=== PATIENT | female | born 1995 | race African-American/Black ===

== ENCOUNTER 2021-06-30 10:08 | Emergency (ER) | payer MEDICARE, MEDICAID, SELFPAY ==
[2021-06-30 10:19] VITALS: BP 115/64; PULSE 75; RESP 24; TEMP 36.9; O2SAT 99
--- NOTE | 2021-06-30 10:21 | ED.SKABFB ---
HPI - Skin/Abscess/Foreign Bdy General Chief complaint: Skin/Abscess/Foreign Body Stated complaint: abscess Time Seen by Provider: 06/30/21 10:21 Source: patient and RN notes reviewed Mode of arrival: ambulatory History of Present Illness HPI narrative: 25-year-old female presents to the [facility] with complaints of an abscess on the buttock. Patient reports the sore has been there for a few days. Notified the custodial caregivers last night when it started draining. Denies fevers. No chest pain or abdominal pain. Has had it opened surgically in the past Related Data Home Medications Medication Instructions Recorded Confirmed Colace 100 mg PO DAILY 06/30/21 06/30/21 ferrous sulfate 325 mg PO DAILY 06/30/21 06/30/21 lisinopril 2.5 mg PO DAILY 06/30/21 06/30/21 lithium carbonate 600 mg PO BID 06/30/21 06/30/21 metformin 500 mg PO DAILY 06/30/21 06/30/21 norethindrone-e.estradiol-iron 1 tablet PO DAILY 06/30/21 06/30/21 omega-3 fatty acids-vitamin E 1 cap PO DAILY 06/30/21 06/30/21 [Fish Oil] oxybutynin chloride 10 mg PO DAILY 06/30/21 06/30/21 paliperidone palmitate [Invega 117 mg IM USEASDIRECTD 06/30/21 06/30/21 Sustenna] prazosin 2 mg PO HS 06/30/21 06/30/21 sertraline 100 mg PO QAM 06/30/21 06/30/21 trazodone 50 mg PO DAILY 06/30/21 06/30/21 Allergies Allergy/AdvReac Type Severity Reaction Status Date / Time Penicillins Allergy Unknown RASH Verified 06/30/21 10:20 Olives Allergy Unknown Hives Uncoded 06/30/21 10:20 Review of Systems Review of Systems: All systems reviewed & are unremarkable except as noted in HPI and below Constitutional: Constitutional: Reports no additional constitutional complaints, Denies chills and Denies fever(s) Eyes: Eyes: Reports no additional eye complaints Cardiovascular: Cardiovascular: Reports no additional cardiovascular complaints Respiratory: Respiratory: Reports no additional respiratory complaints Musculoskeletal: Musculoskeletal: Reports no additional musculoskeletal complaints Integumentary/Breasts: Skin/Breast: Reports as per HPI, Reports erythema and Denies rash Psychiatric: Psychiatric: Reports no additional psychiatric complaints Allergic/Immunologic: Allergic/Immunologic: Reports no additional allergic/immunologic complaints [facility]LY [facility] Past Medical History Medical History (Updated 06/30/21 @ 11:10 by Mary Meraz) Abscess, gluteal cleft Anxiety Bipolar affect, depressed Depression Diabetes Hypertension Comments At the time of my signature, I reviewed and agree with the nursing past medical, surgical, social, and family history. There is no relevant family history pertinent to the patient complaint. Exam Const: General: alert Nutritional Appearance: well nourished Orientation/consciousness: patient oriented x3 HENMT: Head: normal to inspection Neck: Neck: normal visual inspection, no lymphadenopathy and no meningeal signs Chest: Chest palpation & inspection: normal inspection of the chest Resp: Effort & Inspection: normal respiratory effort Auscultation: clear to auscultation bilaterally Cardio: Rate: regular rate Rhythm: regular rhythm GI: GI Palp: No Tenderness to palpation present (GI) : General: Yes no CVA tenderness Back/Spine/Pelvis: Back: no CVA tenderness Skin: Wounds: wounds noted (Proximal gluteal cleft, abscess draining without redness, increased warmth,) Other: Proximal gluteal cleft, abscess draining without redness, increased warmth, no fluctuance, yellowy/thick white drainage noted, old scar tissue in the same area Full body images: 1. draining area, pus, No redness, no increased warmth. Neuro: General: patient oriented x3, moves all extremities, no meningeal signs and no focal motor deficits Speech: normal speech Gait exam (Neuro): Normal gait present Extrem: General: normal to inspection and no pedal edema Psych: Appearance: grossly normal and well kempt Mental Status: mental status grossly n
== END 2021-06-30 10:55 | disposition home or self-care (01) ==
PROVIDERS: Emergency Provider Nurse Practitioner; PCP Nurse Practitioner Family
DX: L02.31 Cutaneous abscess of buttock (principal); E11.9 Type 2 diabetes mellitus without complications; I10 Essential (primary) hypertension; F31.9 Bipolar disorder, unspecified; F41.9 Anxiety disorder, unspecified
CPT/HCPCS: 87070; 87075; 87205; 99203; G0463

== ENCOUNTER 2022-07-09 10:21 | Emergency (ER) | payer MEDICARE, MEDICAID, SELFPAY ==
--- NOTE | 2022-07-09 10:30 | ED.SKABFB ---
HPI - Skin/Abscess/Foreign Bdy General Chief complaint: Skin/Abscess/Foreign Body Stated complaint: boil Time Seen by Provider: 07/09/22 10:34 Source: patient and RN notes reviewed Mode of arrival: ambulatory Limitations: no limitations History of Present Illness HPI narrative: 26-year-old female presents with concern for an abscess. She reports painful area between her buttocks with purulent drainage. She reports she has had to have an abscess drained in her armpit before. She denies fever, body aches, chills, sweats. She denies any change in bowel or bladder function. MD complaint: abscess/boil Related Data Home Medications Medication Instructions Recorded Confirmed Colace 100 mg PO DAILY 06/30/21 09/25/21 ferrous sulfate 325 mg (65 mg 325 mg PO DAILY 06/30/21 09/25/21 iron) tablet lisinopril 2.5 mg tablet 2.5 mg PO DAILY 06/30/21 09/25/21 lithium carbonate 300 mg capsule 600 mg PO BID 06/30/21 09/25/21 metformin 500 mg tablet 500 mg PO DAILY 06/30/21 09/25/21 norethindrone 1 mg-ethinyl 1 tablet PO DAILY 06/30/21 09/25/21 estradiol 20 mcg (21)-iron 75 mg (7) tablet omega-3 fatty acids-vitamin E 1 cap PO DAILY 06/30/21 09/25/21 1,000 mg capsule oxybutynin chloride 10 mg 10 mg PO DAILY 06/30/21 09/25/21 tablet,extended release 24 hr paliperidone palmitate 117 mg/0.75 117 mg IM USEASDIRECTD 06/30/21 09/25/21 mL intramuscular syringe (Invega Sustenna) prazosin 2 mg capsule 2 mg PO HS 06/30/21 09/25/21 sertraline 100 mg tablet 100 mg PO QAM 06/30/21 09/25/21 trazodone 50 mg tablet 50 mg PO DAILY 06/30/21 09/25/21 Allergies Allergy/AdvReac Type Severity Reaction Status Date / Time Penicillins Allergy Unknown RASH Verified 11/29/21 16:26 Olives Allergy Unknown Hives Uncoded 11/29/21 16:26 Review of Systems Review of Systems: CONSTITUTIONAL: Denies malaise, chills, sweats, or fever. EYES: Denies redness, or discharge. ENT: Denies rhinorrhea, congestion, swollen lips, swollen tongue CARDIOVASCULAR: Denies chest pain, palpitations, or edema. RESPIRATORY: Denies cough or dyspnea. GASTROINTESTINAL: Denies abdominal pain, nausea, vomiting SKIN: Reports painful area between the buttocks with purulent drainage MUSCULOSKELETAL: Denies joint pain or myalgia. NEUROLOGIC: Denies headache. All systems reviewed & are unremarkable except as noted in HPI and below PMFSH Past Medical History Medical History Abscess, gluteal cleft Anxiety Bipolar affect, depressed Depression Diabetes Hypertension Social History Social History (System 11/29/21 @ 16:26 by Bishop Rizvi) Smoking status: Never smoker Alcohol intake: never Substance use: never Comments At time of signature, agree with nursing past medical, surgical, social and family history. There is no relevant family history pertinent to the presenting complaint Exam Narrative: GENERAL: Well-appearing, well-nourished, and in no acute distress. HEAD: Normocephalic, atraumatic. EYES: PERRLA, conjunctivae clear ENT: Mucous membranes moist. NECK: Supple. No lymphadenopathy CHEST: Clear to auscultation. No respiratory distress. HEART: Regular rate and rhythm. SKIN: Warm, dry. Purulent drainage noted at the top of the mid buttocks in the pilonidal area. No fluctuance noted in or around the area. No pain beyond proportion, no erythema, warmth. NEURO: Alert and oriented x3. PSYCH: Normal mood and affect Course Course Emergency Course: Patient is aware of diagnosis, understands and agrees to treatment plan. Anticipatory guidance given. Patient agrees to follow-up as directed and is aware of reasons to seek care at the emergency department. Portions of this record may have been created with voice recognition software Level of Care: Express Care Visit Vital Signs Vital signs: Reviewed. MDM - Skin/Abscess/Foreign Bdy MDM Narrative Medical decision making narrative: Exam findings show no a
[2022-07-09 10:31] VITALS: BP 124/68; PULSE 87; RESP 20; TEMP 36.7; O2SAT 99
[2022-07-09 10:32] VITALS: BP 124/68; PULSE 87; RESP 20; TEMP 36.7; O2SAT 99
== END 2022-07-09 10:52 | disposition home or self-care (01) ==
PROVIDERS: Emergency Provider Nurse Practitioner; PCP Nurse Practitioner Family
DX: L05.01 Pilonidal cyst with abscess (principal); E11.9 Type 2 diabetes mellitus without complications; I10 Essential (primary) hypertension; F41.9 Anxiety disorder, unspecified; F31.9 Bipolar disorder, unspecified
CPT/HCPCS: 99213; G0463

== ENCOUNTER 2022-09-30 09:56 | Outpatient (CLI) | payer MEDICARE, MEDICAID, SELFPAY ==
--- NOTE | ~2022-09-30 | US_ITS ---
EXAMINATION: US pelvic complete w TV DATE: 09/30/2022 10:50 INDICATION: Irregular periods. Comparison:No prior studies for comparison. TECHNIQUE: Multiple transabdominal and endovaginal sonographic images of the pelvis performed. FINDINGS: The uterus measures 8.2 x 3.7 x 5 cm. The endometrial complex measures 2 mm. The right ovary is not visualized. Left ovary is normal measuring 1.6 x 1.5 x 1.2 cm. There is no ligia e fluid in the pelvis. There are no abnormal masses seen on either side. IMPRESSION: 1. Unremarkable pelvic ultrasound. Reviewed, dictated and finalized at location A. MAINTENA[facility]CE
== END 2022-09-30 09:57 | disposition home or self-care (01) ==
PROVIDERS: PCP Nurse Practitioner Family; Visit Provider Obstetrics & Gynecology
DX: N92.6 Irregular menstruation, unspecified (principal)
CPT/HCPCS: 76830; 76856

== ENCOUNTER 2024-02-15 12:27 | Emergency (ER) | payer OTHER, SELFPAY ==
[2024-02-15 12:38] VITALS: BP 130/73; PULSE 100; RESP 20; TEMP 36.4; O2SAT 99
[2024-02-15 12:43] VITALS: BP 130/73; PULSE 100; RESP 20; TEMP 36.4; O2SAT 99
--- NOTE | 2024-02-15 12:53 | ED.URI ---
HPI - URI/Sore Throat General Chief Complaint: Upper Respiratory Infection Stated Complaint: Congestion Source: patient and RN notes reviewed Mode of arrival: ambulatory Limitations: no limitations History of Present Illness HPI Narrative: 28-year-old female presents with concern for to 3 day history of runny nose, stuffy nose. Reports she has not taken any [id number] medications for her symptoms. She denies fever, body aches, chills, sweats. Denies vomiting, diarrhea. Reports nausea MD elicited complaint: cough and sore throat Related Data Home Medications Medication Instructions Recorded Confirmed ferrous sulfate 325 mg (65 mg 325 mg PO DAILY 06/30/21 02/15/24 iron) tablet lisinopril 2.5 mg tablet 2.5 mg PO DAILY 06/30/21 02/15/24 lithium carbonate 300 mg capsule 600 mg PO BID 06/30/21 02/15/24 metformin 500 mg tablet 500 mg PO DAILY 06/30/21 02/15/24 norethindrone 1 mg-ethinyl 1 tablet PO DAILY 06/30/21 02/15/24 estradiol 20 mcg (21)-iron 75 mg (7) tablet omega-3 fatty acids-vitamin E 1 cap PO DAILY 06/30/21 02/15/24 1,000 mg capsule oxybutynin chloride 10 mg 10 mg PO DAILY 06/30/21 02/15/24 tablet,extended release 24 hr paliperidone palmitate 117 mg/0.75 117 mg IM DIRECTED 06/30/21 02/15/24 mL intramuscular syringe (Invega Sustenna) prazosin 2 mg capsule 2 mg PO HS 06/30/21 02/15/24 sertraline 100 mg tablet 100 mg PO QAM 06/30/21 02/15/24 trazodone 50 mg tablet 50 mg PO DAILY 06/30/21 02/15/24 albuterol sulfate 90 mcg/actuation 2 inh inhalation DIRECTED 02/15/24 02/15/24 aerosol inhaler aripiprazole 5 mg tablet 5 mg PO DAILY 02/15/24 02/15/24 chlorhexidine gluconate 4 % 1 applic topical DIRECTED 02/15/24 02/15/24 topical liquid (Hibiclens) divalproex 500 mg tablet,extended 500 mg PO DAILY 02/15/24 02/15/24 release 24 hr docusate sodium 100 mg capsule 100 mg PO DAILY 02/15/24 02/15/24 Allergies Allergy/AdvReac Type Severity Reaction Status Date / Time Penicillins Allergy Unknown RASH Verified 02/15/24 12:36 Olives Allergy Unknown Hives Uncoded 02/15/24 12:36 Review of Systems Review of Systems: CONSTITUTIONAL: Denies malaise, chills, sweats, or fever. EYES: Denies visual changes, redness, or discharge. ENT: Reports rhinorrhea, congestion. Denies sinus pain, otalgia and sore throat. CARDIOVASCULAR: Denies chest pain, palpitations, or edema. RESPIRATORY: Denies cough. Denies dyspnea. GASTROINTESTINAL: Denies abdominal pain, vomiting, diarrhea. Reports nausea SKIN: Denies rash or itching. MUSCULOSKELETAL: Denies myalgia. NEUROLOGIC: Denies headache. All systems reviewed & are unremarkable except as noted in HPI and below PMFSH Past Medical History Medical History Abscess, gluteal cleft Anxiety Bipolar affect, depressed Depression Diabetes Hypertension Social History Social History (Updated 12/23/22 @ 09:01 by BIRDIE Clemens) Smoking status: Never smoker Alcohol intake: never Substance use: never Lack of Transportation: No Lack of Food: Never True Current Housing: I Have Housing Concerned About Future Housing: No Difficulty Paying Gas/Electric Bills: No Difficulty Paying for Meds: No Currently Unemployed: No Education: Grade School Difficulty w/ Childcare or Family Care: No Comments At time of signature, agree with nursing past medical, surgical, social and family history. There is no relevant family history pertinent to the presenting complaint Exam Narrative: GENERAL: Well-appearing, well-nourished, and in no acute distress. HEAD: Normocephalic EYES: PERRLA, conjunctivae clear ENT: Nares clear, turbinates edematous and erythematous, clear discharge. Mucous membranes moist. TM pearly lamas with dull light reflex bilaterally; no tragal tenderness. Oropharynx not erythematous without lesions. Tonsils not enlarged and without exudate, no drooling, no hoarseness, no
== END 2024-02-15 13:07 | disposition home or self-care (01) ==
PROVIDERS: Emergency Provider Nurse Practitioner; PCP Nurse Practitioner Family
DX: J06.9 Acute upper respiratory infection, unspecified (principal); E11.9 Type 2 diabetes mellitus without complications; I10 Essential (primary) hypertension; F41.9 Anxiety disorder, unspecified; F32.A Depression, unspecified
CPT/HCPCS: 99213; G0463